=== PATIENT | female | born 1985 ===

== ENCOUNTER 2017-12-27 14:08 | Emergency (ER) | payer OTHER ==
[2017-12-27 15:11] VITALS: BP 109/66; PULSE 83; RESP 18; TEMP 98.6; O2SAT 97
--- NOTE | 2017-12-27 15:22 | ED PDOC ---
Arrival/HPI - General Chief Complaint: Flu-like Symptoms Time Seen by Provider: 12/27/17 15:16 Historian: Patient - History of Present Illness Narrative History of Present Illness (Text): 12/27/17 15:19 32yo female with PMhx of Asthma who present with complaint of cough, generalized bodyache, weakness x days. Notes that it started on Saturday, improved and started again . States her family members are sick with same symptoms, but she was sick first. She did not take any medication. Denies nausea, vomiting, sore throat, abdominal pain, dizziness, any other complaint. Past Medical History - Provider Review Nursing Documentation Reviewed: Yes - Infectious Disease Hx of Infectious Diseases: None - Psychiatric Hx Substance Use: No Family/Social History - Physician Review Nursing Documentation Reviewed: Yes Family/Social History: Unknown Family HX Smoking Status: Never Smoked Hx Alcohol Use: No Hx Substance Use: No Allergies/Home Meds Allergies/Adverse Reactions: Allergies No Known Allergies Allergy (Verified 12/27/17 15:11) Review of Systems - Physician Review All systems were reviewed & negative as marked: Yes - Review of Systems Constitutional: Fatigue, Other (chills) Eyes: Normal ENT: Rhinorrhea Respiratory: Cough Cardiovascular: Normal Gastrointestinal: Normal Genitourinary Female: Normal Musculoskeletal: Normal Skin: Normal Neurological: Normal Endocrine: Normal Hemo/Lymphatic: Normal Psychiatric: Normal Physical Exam Vital Signs Reviewed: Yes Vital Signs Temp Pulse Resp BP Pulse Ox 12/27/17 15:08 98.6 F 83 18 109/66 97 Temperature: Afebrile Blood Pressure: Normal Pulse: Regular Respiratory Rate: Normal Appearance: Positive for: Well-Appearing, Non-Toxic, Comfortable Pain Distress: None Mental Status: Positive for: Alert and Oriented X 3 - Systems Exam Head: Present: Atraumatic, Normocephalic Pupils: Present: PERRL Extroacular Muscles: Present: EOMI Conjunctiva: Present: Normal Mouth: Present: Moist Mucous Membranes Neck: Present: Normal Range of Motion Respiratory/Chest: Present: Clear to Auscultation, Good Air Exchange. No: Respiratory Distress, Accessory Muscle Use, Wheezes, Decreased Breath Sounds, Rales, Retracting, Rhonchi Cardiovascular: Present: Regular Rate and Rhythm, Normal S1, S2. No: Murmurs Abdomen: Present: Normal Bowel Sounds. No: Tenderness, Distention, Peritoneal Signs Back: Present: Normal Inspection Upper Extremity: Present: Normal Inspection. No: Cyanosis, Edema Lower Extremity: Present: Normal Inspection. No: Edema Neurological: Present: GCS=15, CN II-XII Intact, Speech Normal Skin: Present: Warm, Dry, Normal Color. No: Rashes Psychiatric: Present: Alert, Oriented x 3, Normal Insight, Normal Concentration Medical Decision Making ED Course and Treatment: 12/27/17 19:50 Pt's spouse and daughter was positive for flu. Pt' rapid flu/strep was negative. She was treated with tamiflu for flu like symptoms. referred to her PMD. - Lab Interpretations Lab Results: Lab Results 12/27/17 15:30: Grp A Beta Strep Ag Negative 12/27/17 15:30: Influenza Typ A,B (EIA) Negative for flu a/b - Medication Orders Current Medication Orders: Discontinued Medications Ibuprofen (Motrin Tab) 600 mg PO STAT STA Stop: 12/27/17 15:18 Last Admin: 12/27/17 15:43 Dose: 600 mg Oseltamivir Phosphate (Tamiflu Cap) 75 mg PO ONCE STA PRN Reason: Protocol Stop: 12/27/17 16:57 Last Admin: 12/27/17 17:27 Dose: 75 mg Disposition/Present on Arrival - Present on Arrival Any Indicators Present on Arrival: No History of DVT/PE: No History of Uncontrolled Diabetes: No Urinary Catheter: No History of Decub. Ulcer: No History Surgical Site Infection Following: None - Disposition Have Diagnosis and Disposition been Completed?: Yes Diagnosis: Influenza Disposition: HOME/ ROUTINE Disposition Time: 17:40 Patient Plan: Discharge Condition: STABLE Discharge Instructions (ExitCare): Flu, Adult (DC) Additional Instructions: Follow up with your Doctor drink plenty of fluid and rest Return to ED for any new or worsening symptoms Prescriptions: Ibuprofen [Motrin] 600 mg PO Q6 #20 tab Oseltamivir [Tamiflu] 75 mg PO BID #10 cap Referrals: Allen Quintana MD [Primary Care Provider] - Follow up with primary Forms: [employer] (Spanish)
== END 2017-12-27 18:15 | disposition home or self-care (01) ==
LOC: MERGE 14:08 → ED 14:08
DX: J11.1 Influenza due to unidentified influenza virus with other respiratory manifestations (principal)